=== PATIENT | female | born 1950 | race Caucasian/White ===

== ENCOUNTER → 2018-02-07 08:57 | Outpatient (CLI) | payer MEDICARE, SELFPAY ==
--- NOTE | 2018-02-07 09:00 | BI_ITS ---
MAMMOGRAPHY - BILATERAL SCREENING REASON FOR EXAM: Female, 67 years old. Routine annual screening examination. PERTINENT HISTORY: Non-contributory. TECHNIQUE: Digital bilateral breast castillo (3D mammographic acquisition) in the CC and MLO projections. 2-D mediolateral oblique (MLO) and craniocaudad (CC) views of both breasts were obtained. CAD: Full Field Digital Mammography with Computer Added Detection was performed. COMPARISON: Comparison is made with prior examination dated December 19, 2013. FINDINGS: Breast Composition: The breasts are heterogeneously dense, which may obscure small masses. There are no dominant masses or suspicious calcifications. Stable 9.1 mm well-defined calcified nodule in the upper slightly medial midportion of the left breast. No other significant abnormalities are identified. There has been no significant change since the prior study. BI/SCREENING MAMM (CAD), BILAT IMPRESSION: Stable bilateral screening mammogram. Yearly follow-up mammogram recommended. (A) ASSESSMENT CATEGORY: BIRADS Category 2: Benign. A letter regarding these results will be sent to the patient by the facility within 30 days. Approximately 10% of breast cancers are not detected by mammography. A normal mammogram should not delay biopsy of a clinically suspicious abnormality. [id number] Electronically Signed: Wilbur Cortez MD at 10:15 EST Tel [phone], Service support ,
== END ==
DX: Z12.31 Encounter for screening mammogram for malignant neoplasm of breast (principal)
CPT/HCPCS: 77063; 77067

== ENCOUNTER 2018-07-13 06:03 | Day surgery (SDC) | payer MEDICARE, SELFPAY ==
[2018-07-13] VITALS (14 sets, daily range): BP systolic 106–138; BP diastolic 68–86; PULSE 55–65; RESP 16–18; TEMP 36.6–36.8; O2SAT 92–98; BMI 34.9
--- NOTE | 2018-07-13 06:52 | PCM.HP.STD ---
Problem List (1) Screening for intestinal cancer Status: Acute History of Present Illness Date of Admission: 07/13/18 The patient is a 67 year old F presents for screening colonoscopy. She has not had a previous colonoscopy. Family history is notable for her father who developed colon cancer and from it. She notes dark stools but states that she is chronically iron deficient and has been on iron replacement for a long period of time. She denies bright red blood. She denies chest pain or shortness of breath. She has not had any weight change. [facility]. Past Medical History Allergies promethazine [From Phenergan] Adverse Reaction (Verified 07/13/18 06:26) ANXIETY, CONFUSION Home Medications: Ambulatory Orders Medication Instructions Recorded Atorvastatin Calcium [Lipitor] 10 mg PO QHS 07/11/18 Esomeprazole Mag Trihydrate 40 mg PO DAILY 07/11/18 [Nexium] Ferrous Sulfate [Iron] 325 mg PO DAILY 07/11/18 Fluoxetine [Prozac] 20 mg PO DAILY 07/11/18 Hydrochlorothiazide [Hctz] 12.5 mg PO DAILY 07/11/18 Losartan Potassium [Cozaar] 50 mg PO DAILY 07/11/18 Smoking Status: Never smoker Review of Systems Constitutional: Denies: Anorexia HEENT: Denies: Difficulty Swallowing Cardiovascular: Denies: Chest Pain Respiratory: Denies: Cough Gastrointestinal: Denies: Abdominal Pain Neurological: Denies: Balance problems Endocrine: Denies: Change in Body Habitus VTE Information - Inpt Only VTE Present on Admission: No Patient Problems: Active and Suspected Problems (This Medical Record has been edited. Action required.) Screening for intestinal cancer (Acute) - Physical Exam General: Alert, Oriented x3, Cooperative, No apparent distress HEENT: Atraumatic Oral: Moist Mucosa Neck: Supple Lungs: Clear to auscultation, Normal air movement Cardiovascular: Regular rate, Regular Rhythm Abdomen: Bowel Sounds Present, Soft, Non Tender Extremities: No Calf Tenderness Psych/Mental Status: Normal Affect Vital Signs Temp Pulse Resp BP Pulse Ox 98.2 F 65 18 125/78 H 97 07/13/18 06:26 07/13/18 06:26 07/13/18 06:26 07/13/18 06:26 07/13/18 06:26 Oxygen Delivery Method Room Air Weight: 203 lb 11.314 oz Body Mass Index (BMI) 34.9 Assessment/Plan All Active Problems (This Medical Record has been edited. Action required.) Screening for intestinal cancer (Acute) 67-year-old female with family history of colon cancer and no previous colonoscopy. I recommend for her colonoscopy with possible biopsy or polypectomy is indicated. She is aware of the technique, benefits, risks, alternatives. She has had an opportunity to ask and have questions answered. She presents via our open access program today. Ubaldo Guallpa M.D., F.A.C.S.
--- NOTE | 2018-07-13 06:55 | HP.PCM_ITS ---
Problem List (1) Screening for intestinal cancer Status: Acute History of Present Illness Date of Admission: 07/13/18 The patient is a 67 year old F presents for screening colonoscopy. She has not had a previous colonoscopy. Family history is notable for her father who developed colon cancer and from it. She notes dark stools but states that she is chronically iron deficient and has been on iron replacement for a long period of time. She denies bright red blood. She denies chest pain or shortness of breath. She has not had any weight change. [facility] is [facility]. Past Medical History Allergies promethazine [From Phenergan] Adverse Reaction (Verified 07/13/18 06:26) ANXIETY, CONFUSION Home Medications: Ambulatory Orders Medication Instructions Recorded Atorvastatin Calcium [Lipitor] 10 mg PO QHS 07/11/18 Esomeprazole Mag Trihydrate 40 mg PO DAILY 07/11/18 [Nexium] Ferrous Sulfate [Iron] 325 mg PO DAILY 07/11/18 Fluoxetine [Prozac] 20 mg PO DAILY 07/11/18 Hydrochlorothiazide [Hctz] 12.5 mg PO DAILY 07/11/18 Losartan Potassium [Cozaar] 50 mg PO DAILY 07/11/18 Smoking Status: Never smoker Review of Systems Constitutional: Denies: Anorexia HEENT: Denies: Difficulty Swallowing Cardiovascular: Denies: Chest Pain Respiratory: Denies: Cough Gastrointestinal: Denies: Abdominal Pain Neurological: Denies: Balance problems Endocrine: Denies: Change in Body Habitus VTE Information - Inpt Only VTE Present on Admission: No Patient Problems: Active and Suspected Problems (This Medical Record has been edited. Action required.) Screening for intestinal cancer (Acute) - Physical Exam General: Alert, Oriented x3, Cooperative, No apparent distress HEENT: Atraumatic Oral: Moist Mucosa Neck: Supple Lungs: Clear to auscultation, Normal air movement Cardiovascular: Regular rate, Regular Rhythm Abdomen: Bowel Sounds Present, Soft, Non Tender Extremities: No Calf Tenderness Psych/Mental Status: Normal Affect Vital Signs Temp Pulse Resp BP Pulse Ox 98.2 F 65 18 125/78 H 97 07/13/18 06:26 07/13/18 06:26 07/13/18 06:26 07/13/18 06:26 07/13/18 06:26 Oxygen Delivery Method Room Air Weight: 203 lb 11.314 oz Body Mass Index (BMI) 34.9 Assessment/Plan All Active Problems (This Medical Record has been edited. Action required.) Screening for intestinal cancer (Acute) 67-year-old female with family history of colon cancer and no previous colonos copy. I recommend for her colonoscopy with possible biopsy or polypectomy is indicated. She is aware of the technique, benefits, risks, alternatives. She has had an opportunity to ask and have questions answered. She presents via our open access program today. Ubaldo Guallpa M.D., F.A.C.S.
--- NOTE | 2018-07-13 07:00 | COLBX_PTH ---
PATIENT: KEHINDE MCNALLY LOC: [facility] U#:[id number] AGE/SX: 67/F ROOM: RE07/13/[address]: Dr. Ubaldo Guallpa MD : [id number] BED: DIS: 07/13/2018 SPEC #: [id number] RECD: 07/13/18 08:49 STATUS: YUMIKO ROSAURA #: [id number] GAIL: 07/13/18 07:[address]: Ubaldo Guallpa DEPT: SURGICAL PATHOLOGY RECD BY: Tim Williamson ENTERED: 07/13/18 09:40 SP TYPE: COLON BX GUALBERTO DR: Belkys Azul, DECKHAND [facility] DREDGE-[facility] Tissues: A - Cecum, NOS B - Sigmoid colon biopsy Procedures: Surgery Specimen Level IV HEADER OPERATION: Colonoscopy - open access (MOD) PRE-OP DIAGNOSIS: Screening colonoscopy TISSUE SUBMITTED: A - Cecal polyp biopsy, B - Proximal sigmoid melanosis biopsy MICROSCOPIC DIAGNOSIS A. Cecal polyp, biopsy: Fragments of colonic mucosa with pigment laden macrophages, consistent with melanosis coli. B. Proximal sigmoid melanosis, biopsy: Tubular adenoma. Pigment laden macrophages, consistent with melanosis coli. See comment. ROSEY:quintin 07/16/18 COMMENT A & B. The specimen appear to be switched. Clinical correlation and appropriate follow up are necessary. MICROSCOPIC DESCRIPTION Slides are reviewed. GROSS DESCRIPTION A - Received in fixative is one container labeled with the patient's name and designated cecal polyp biopsy. The specimen consists of two irregular fragments of light delacruz soft tissue that in aggregate measure 0.8 x 0.3 x 0.1 cm. The specimen is totally submitted in one cassette. B - Received in fixative is one container labeled with the patient's name and designated proximal sigmoid melanosis biopsy. The specimen consists of one irregular fragment of light delacruz soft tissue that measures 0.6 x 0.2 x 0.1 cm. The specimen is totally submitted in one cassette. / ROSEY:quintin 07/13/18 TC:1 CPT: 46156 x2
--- NOTE | 2018-07-13 07:25 | OP.ENDO_ITS ---
07/13/2018 [facility] Re : [facility] This procedure was performed on Friday, July 13, 2018. My impressions and recommendations are as follows: Impressions : - Hemorrhoids found on perianal exam. - One 4 mm polyp in the cecum, removed with a cold biopsy forceps. Resected and retrieved. - Melanosis in the colon. Biopsied. - Diverticulosis in the sigmoid colon and in the descending colon. Recommendations : - Discharge patient to home. - Resume previous diet. - Continue present medications. - Repeat colonoscopy in 5 years for surveillance. - Telephone my office for pathology results in 1 week. My findings are described in the full procedure note, which is enclosed. If I can be of further assistance, please feel free to contact me at Doctor phone number(s): Work: . Sincerely, Ubaldo Guallpa MD 07/13/2018 7:25:38 AM This report has been signed electronically.
== END 2018-07-13 08:55 | disposition home or self-care (01) ==
LOC: EN 06:04 → AC 06:06
PROVIDERS: Visit Provider Surgery
PROC: 0DJD8ZZ Inspection of Lower Intestinal Tract, Via Natural or Artificial Opening Endoscopic (ICD-10-PCS; CPT 45378; principal; 2018-07-13 06:55)
DX: Z12.11 Encounter for screening for malignant neoplasm of colon (principal); D12.0 Benign neoplasm of cecum; K63.89 Other specified diseases of intestine; K57.30 Diverticulosis of large intestine without perforation or abscess without bleeding; K64.9 Unspecified hemorrhoids; Z80.0 Family history of malignant neoplasm of digestive organs
CPT/HCPCS: 45380; 88305; 99152; 99153; J7120

== ENCOUNTER → 2018-10-04 10:39 | Outpatient (CLI) | payer MEDICARE, SELFPAY ==
[2018-07-13 06:26] VITALS: BMI 34.9
--- NOTE | 2018-10-04 10:43 | RAD_ITS ---
STUDY: X-RAY CHEST REASON FOR EXAM: Female, 67 years old. Chest pain TECHNIQUE: PA and lateral views of the chest COMPARISON: None. FINDINGS: The lungs are clear. There are no pleural effusions. There is no pneumothorax. The heart is normal in size. The visualized osseous structures are within normal limits. Cervical fusion present. RAD/Chest PA and Lateral IMPRESSION: No acute thoracic pathology. Electronically Signed: Sabas Wallace, at 16:19 EDT Tel , Service support ,
== END ==
DX: R05 Cough (principal)
CPT/HCPCS: 71046

== ENCOUNTER → 2019-02-08 07:40 | Outpatient (CLI) | payer MEDICARE, SELFPAY ==
[2018-07-13 06:26] VITALS: BMI 34.9
--- NOTE | 2019-02-08 07:50 | BI_ITS ---
MAMMOGRAPHY - BILATERAL SCREENING REASON FOR EXAM: Female, 68 years old. Routine annual screening examination. PERTINENT HISTORY: Non-contributory. TECHNIQUE: Digital bilateral breast mahsa (3D mammographic acquisition) in the CC and MLO projections. 2-D mediolateral oblique (MLO) and craniocaudad (CC) views of both breasts were obtained. CAD: Full Field Digital Mammography with Computer Added Detection was performed. COMPARISON: Comparison is made with prior study dated February 07, 2018 and December 19, 2013. FINDINGS: Breast Composition: The breasts are heterogeneously dense, which may obscure small masses. There are no dominant masses or suspicious calcifications. Stable 9.1 mm well-defined calcified nodule in the upper slightly medial aspect of the left breast No other significant abnormalities are identified. There has been no significant change since the prior study. BI/SCREEN MAMM (CAD) W/MAHSA BILAT IMPRESSION: Stable bilateral screening mammogram. Yearly follow-up mammogram recommended. (A) ASSESSMENT CATEGORY: BIRADS Category 2: Benign. A letter regarding these results will be sent to the patient by the facility within 30 days. Approximately 10% of breast cancers are not detected by mammography. A normal mammogram should not delay biopsy of a clinically suspicious abnormality. [id number] Electronically Signed: Wilbur Cortez, at 9:07 EST , Service support ,
== END ==
DX: Z12.31 Encounter for screening mammogram for malignant neoplasm of breast (principal)
CPT/HCPCS: 77063; 77067

== ENCOUNTER → 2019-12-27 09:06 | Outpatient (CLI) | payer MEDICARE, SELFPAY ==
[2018-07-13 06:26] VITALS: BMI 34.9
[2019-12-27 09:24] LABS: Absolute Lymphocyte Count 2.46 X10^3/uL (0.83-4.51); Absolute Neutrophil Count 4.5 X10^3/uL (2.0-7.7); Basophil# 0.06 X10^3/uL; Basophil% 0.8 % (0-1); Eosinophils% 2.6 % (0-5); Hemoglobin 13.7 g/dL (12.0-15.0); Lymphocyte # 2.46 X10^3/ul (4.0); Lymphocyte % 31.9 % (19-41); Mean Corp Hgb Conc 32.6 g/dL (32-36); Mean Corpuscular Hgb 31.6 pg (27.0-32.0); Mean Corpuscular Volume 96.8 fL (81-99); Mean Platelet Vol. 9.7 fl (6.2-12.0); Monocyte# 0.48 X10^3/uL; Monocyte% 6.2 % (0-10); NRBC Flagged by Analyzer 0 % (0-5); Neutrophil # 4.51 X10^3/uL (2.7-7.7); Neutrophil % 58.4 % (47-70); Platelet Count 260 K/mm3 (150-450); RBC Distribution Width CV 12.9 % (11.6-14.6); RBC Distribution Width SD 46.5 fl (35.1-43.9); Red Blood Count 4.34 M/mm3 (4.2-5.4); White Blood Count 7.7 K/mm3 (4.4-11.0)
[2019-12-27 09:46] LABS: AST(SGOT) 31 U/L (15-37); Alanine Aminotransfer ALT/SGPT 33 U/L (13-56); Alkaline Phosphatase 79 U/L (45-117); Anion Gap 7 (5-15); BUN 20 mg/dL (7-18); BUN/Creat Ratio 22.2 RATIO (10-20); Calcium,Total 9.2 mg/dL (8.5-10.1); Chloride 104 mmol/L (98-107); Cholesterol 199 mg/dL (200); EST Glomerular Filtration Rate 66 mL/min (>60); Est Glom Filt Rate - Afr Amer 79 mL/min (>60); Glucose 93 mg/dL (74-106); High Density Lipoprotein 43 mg/dL; Sodium Level 139 mmol/L (136-145); Triglycerides 181 mg/dL; Very Low Density Lipoprotein 36 mg/dL (5-40)
[2019-12-27 09:47] LABS: Vitamin D,25 Hydroxy 22.8 ng/mL
[2019-12-27 09:50] LABS: Hemoglobin A1c 5.6 % (3.8-5.6)
== END ==
PROVIDERS: Nurse Practitioner Family
DX: D64.9 Anemia, unspecified (principal); R73.03 Prediabetes; E78.5 Hyperlipidemia, unspecified; E55.9 Vitamin D deficiency, unspecified; I10 Essential (primary) hypertension
CPT/HCPCS: 36415; 80053; 80061; 82306; 83036; 85025

== ENCOUNTER → 2020-12-09 13:03 | Outpatient (CLI) | payer MEDICARE, SELFPAY ==
--- NOTE | 2020-12-09 13:08 | BI_ITS ---
MAMMOGRAPHY - BILATERAL SCREENING 3-D TOMOSYNTHESIS REASON FOR EXAM: Female, 69 years old. SCREENING PERTINENT HISTORY: No significant family history. TECHNIQUE: 2-D mammograms and 3-D Tomosynthesis of the breast (s) were performed. CAD was performed. COMPARISON: 02/08/2019 FINDINGS: The breast composition is heterogeneously dense that can obscure small breast masses. Scattered benign calcifications are seen. No dense spiculated masses or suspicious microcalcifications are identified. No architectural distortion is identified. There is no skin thickening or retraction. There has been no significant change since the prior study. BI/SCRN MAMM (CAD)W/MAHSA BILAT IMPRESSION: No mammographic signs of malignancy. Routine yearly mammograms recommended. ASSESSMENT CATEGORY: BIRADS Category 1: Negative. A letter regarding these results will be sent to the patient by the facility within 30 days. FOLLOW UP RECOMMENDATION: Yearly follow up mammogram recommended. (A) Approximately 10% of breast cancers are not detected by mammography. A normal mammogram should not delay biopsy of a clinically suspicious abnormality. Electronically Signed: Jefe Hampton MD at 13:57 EDT Tel , Service support ,
== END ==
PROVIDERS: Referring Provider Nurse Practitioner Adult Health; Visit Provider Nurse Practitioner Adult Health
DX: Z12.31 Encounter for screening mammogram for malignant neoplasm of breast (principal)
CPT/HCPCS: 77063; 77067

== ENCOUNTER → 2020-12-16 08:24 | Outpatient (CLI) | payer MEDICARE, SELFPAY ==
[2020-12-16 09:42] LABS: T4 Free Direct 0.73 ng/dL (0.76-1.46); Thyroid Stim Hormone (TSH) 2.67 uIU/mL (0.358-3.74)
== END ==
DX: I10 Essential (primary) hypertension (principal); D64.9 Anemia, unspecified; E78.5 Hyperlipidemia, unspecified; F33.0 Major depressive disorder, recurrent, mild
CPT/HCPCS: 36415; 84439; 84443

== ENCOUNTER → 2020-12-29 09:02 | Outpatient (CLI) | payer MEDICARE, SELFPAY ==
--- NOTE | 2020-12-29 09:06 | BD_ITS ---
STUDY: DUAL ENERGY X-RAY ABSORPTIOMETRY / DXA REASON FOR EXAM: Female, 70 years old. M810. Patient is postmenopausal. TECHNIQUE: Bone Mineral Density (BMD) measurements of lumbar spine and bilateral hips were obtained. COMPARISON: Comparison is made with prior study 12/19/2013. FINDINGS: Lumbar Spine (L1-L4): g/cm2 (0.990) / T-score (0.1) / Z-score (2.2) Findings are suggestive of normal bone density with a low fracture risk. Left Femur Total: g/cm2 (0.932) / T-score (-0.1) / Z-score (1.5) Left Femoral Neck: g/cm2 (0.827) / T-score (0.2) / Z-score (1.7) Right Femur Total: g/cm2 (0.914) / T-score (0.2) / Z-score (1.4) Right Femoral Neck: g/cm2 (0.760) / T-score (-0.8) / Z-score (1.) The T-Scores on the most recent prior examination were: Lumbar Spine (L1-L4): There has been worsening of bone density since the previous examination. Left Femur Total: which represents a worsening of 6%. Right Femur Total: which represents a worsening of 5.1%. BD/Dexa Bone Density Study IMPRESSION: The patient is considered normal as outlined below according to World [employer] Organization (WHO) criteria with a low fracture risk. There has been worsening of bone density since the previous examination. Reference Information: The T-score is the number of standard deviations above or below the standard which is normal for young adults at their peak bone mineral density. The World Health Organization (WHO) interprets the T-scores as follows: Above -1 Normal bone density Between -1 and -2.5 Osteopenia Equal to / or below -2.5 Osteoporosis As a practical clinical guideline, osteopenia may be graded as follows: Mild -1 through -1.5 Moderate -1.6 through -2.0 Severe -2.1 through -2.4 The Z-score is the number of standard deviations above or below age-matched controls. A Z-score of less than -1.5 would be considered abnormal. References: 1. NIH Osteoporosis and Related Bone Diseases www osteo.org 2. International Society for Clinical Densitometry www iscd.org 3. National Osteoporosis Foundation www nof.org Electronically Signed: Wilbur Cortez MD at 13:13 EDT , Service support ,
== END ==
PROVIDERS: Referring Provider Nurse Practitioner Adult Health; Visit Provider Nurse Practitioner Adult Health
DX: M81.0 Age-related osteoporosis without current pathological fracture (principal); Z78.0 Asymptomatic menopausal state
CPT/HCPCS: 77080

== ENCOUNTER → 2021-09-23 | Outpatient (CLI) | payer MEDICARE, SELFPAY ==
[2021-09-23 10:34] LABS: Hematocrit 39.4 % (37-47); Hemoglobin 13.1 g/dL (12.0-15.0); Mean Corp Hgb Conc 33.2 g/dL (32-36); Mean Corpuscular Hgb 32.3 pg (27.0-32.0); Mean Corpuscular Volume 97.3 fL (81-99); Mean Platelet Vol. 10.3 fl (6.2-12.0); Platelet Count 298 K/mm3 (150-450); RBC Distribution Width SD 46.7 fl (35.1-43.9); Red Blood Count 4.05 M/mm3 (4.2-5.4); White Blood Count 9.5 K/mm3 (4.4-11.0)
[2021-09-23 11:32] LABS: ALB/GLOB Ratio 0.8 RATIO (0.9-2.4); AST(SGOT) 28 U/L (15-37); Alanine Aminotransfer ALT/SGPT 33 U/L (13-56); Albumin, Serum 3.4 g/dL (3.2-5.0); Alkaline Phosphatase 79 U/L (45-117); Anion Gap 8 (5-15); BUN 18 mg/dL (7-18); BUN/Creat Ratio 19.1 RATIO (10-20); Calcium,Total 9.2 mg/dL (8.5-10.1); Chloride 104 mmol/L (98-107); Cholesterol 185 mg/dL (200); Creatinine, Serum 0.94 mg/dL (0.55-1.02); EST Glomerular Filtration Rate 62 mL/min (>60); Est Glom Filt Rate - Afr Amer 75 mL/min (>60); Globulin 4.2 g/dL (2.2-4.2); Glucose 91 mg/dL (74-106); High Density Lipoprotein 30 mg/dL; Potassium 3.8 mmol/L (3.5-5.1); Protein, Total 7.6 g/dL (6.4-8.2); Sodium Level 139 mmol/L (136-145); Triglycerides 330 mg/dL; Very Low Density Lipoprotein 66 mg/dL (5-40)
== END | disposition home or self-care (01) ==
PROVIDERS: Visit Provider Nurse Practitioner Adult Health
DX: I10 Essential (primary) hypertension (principal)
CPT/HCPCS: 36415; 80053; 80061; 84443; 85027

== ENCOUNTER → 2021-12-27 | Outpatient (CLI) | payer MEDICARE, SELFPAY ==
--- NOTE | 2021-12-27 12:54 | BI_ITS ---
MAMMOGRAPHY - BILATERAL SCREENING REASON FOR EXAM: Female, 71 years old. Routine annual screening examination. PERTINENT HISTORY: Non-contributory. TECHNIQUE: Digital bilateral breast mahsa (3D mammographic acquisition) in the CC and MLO projections. 2-D mediolateral oblique (MLO) and craniocaudad (CC) views of both breasts were obtained. CAD: Full Field Digital Mammography with Computer Added Detection was performed. COMPARISON: Comparison is made with prior study dated 12/09/2020 and 02/08/2019. FINDINGS: Breast Composition: The breasts are heterogeneously dense, which may obscure small masses. There are no dominant masses or suspicious calcifications. Stable 9 mm well-defined nodule in the upper slightly medial aspect of the left breast. Stable 4 mm well-defined nodule in the axillary region of the left breast. No other significant abnormalities are identified. There has been no significant change since the prior study. BI/SCRN MAMM (CAD)W/MAHSA BILAT IMPRESSION: Stable bilateral screening mammogram. Yearly follow-up mammogram recommended. (A) ASSESSMENT CATEGORY: BIRADS Category 2: Benign. A letter regarding these results will be sent to the patient by the facility within 30 days. Approximately 10% of breast cancers are not detected by mammography. A normal mammogram should not delay biopsy of a clinically suspicious abnormality. [id number] Electronically Signed: Wilbur Cortez MD at 14:01 EDT ,
== END | disposition home or self-care (01) ==
LOC: OPBI 12:53
PROVIDERS: Referring Provider Family Medicine; Visit Provider Family Medicine
DX: Z12.31 Encounter for screening mammogram for malignant neoplasm of breast (principal)
CPT/HCPCS: 77063; 77067

== ENCOUNTER → 2022-08-17 | Outpatient (CLI) | payer MEDICARE, SELFPAY ==
[2022-08-17 09:35] LABS: Hematocrit 42.8 % (37-47); Mean Corp Hgb Conc 32.7 g/dL (32-36); Mean Corpuscular Hgb 32.2 pg (27.0-32.0); Mean Corpuscular Volume 98.4 fL (81-99); Mean Platelet Vol. 9.8 fl (6.2-12.0); Platelet Count 301 K/mm3 (150-450); RBC Distribution Width CV 12.9 % (11.6-14.6); RBC Distribution Width SD 46.6 fl (35.1-43.9); Red Blood Count 4.35 M/mm3 (4.2-5.4); White Blood Count 8.3 K/mm3 (4.4-11.0)
[2022-08-17 09:55] LABS: Hemoglobin A1c 5.8 % (3.8-5.6)
[2022-08-17 10:27] LABS: AST(SGOT) 26 U/L (15-37); Alanine Aminotransfer ALT/SGPT 29 U/L (13-56); Alkaline Phosphatase 86 U/L (45-117); Anion Gap 8 (5-15); BUN 20 mg/dL (7-18); BUN/Creat Ratio 24.4 RATIO (10-20); Calcium,Total 9.4 mg/dL (8.5-10.1); Chloride 103 mmol/L (98-107); Cholesterol 218 mg/dL (200); Creatinine, Serum 0.82 mg/dL (0.55-1.02); EST Glomerular Filtration Rate 73 mL/min (>60); Est Glom Filt Rate - Afr Amer 88 mL/min (>60); Globulin 4.2 g/dL (2.2-4.2); Glucose 99 mg/dL (74-106); High Density Lipoprotein 40 mg/dL; Potassium 3.7 mmol/L (3.5-5.1); Protein, Total 8.2 g/dL (6.4-8.2); Sodium Level 137 mmol/L (136-145); Thyroid Stim Hormone (TSH) 3.61 uIU/mL (0.358-3.74); Triglycerides 205 mg/dL; Very Low Density Lipoprotein 41 mg/dL (5-40)
== END | disposition home or self-care (01) ==
DX: I10 Essential (primary) hypertension (principal); E78.5 Hyperlipidemia, unspecified; R73.03 Prediabetes; D64.9 Anemia, unspecified; E55.9 Vitamin D deficiency, unspecified
CPT/HCPCS: 36415; 80053; 80061; 82306; 83036; 84443; 85027

== ENCOUNTER → 2023-05-03 | Outpatient (CLI) | payer MEDICARE, SELFPAY ==
[2023-05-03 09:52] LABS: Absolute Lymphocyte Count 1.99 X10^3/uL (0.83-4.51); Absolute Neutrophil Count 4.4 X10^3/uL (2.0-7.7); Basophil# 0.06 X10^3/uL; Basophil% 0.8 % (0-1); Eosinophil# 0.18 X10^3/uL; Eosinophils% 2.5 % (0-5); Hematocrit 39.9 % (37-47); Hemoglobin 13.2 g/dL (12.0-15.0); Lymphocyte # 1.99 X10^3/ul (0.83-4.51); Lymphocyte % 28.1 % (19-41); Mean Corp Hgb Conc 33.1 g/dL (32-36); Mean Corpuscular Volume 93.7 fL (81-99); Mean Platelet Vol. 9.9 fl (6.2-12.0); Monocyte# 0.46 X10^3/uL; Monocyte% 6.5 % (0-10); NRBC Flagged by Analyzer 0 % (0-5); Neutrophil # 4.37 X10^3/uL (2.7-7.7); Neutrophil % 61.8 % (47-70); Platelet Count 265 K/mm3 (150-450); RBC Distribution Width SD 44.4 fl (35.1-43.9); Red Blood Count 4.26 M/mm3 (4.2-5.4); White Blood Count 7.1 K/mm3 (4.4-11.0)
[2023-05-03 10:39] LABS: Hemoglobin A1c 5.9 % (3.8-5.6)
[2023-05-03 11:20] LABS: AST(SGOT) 22 U/L (15-37); Alanine Aminotransfer ALT/SGPT 24 U/L (13-56); Albumin, Serum 3.8 g/dL (3.2-5.0); Alkaline Phosphatase 77 U/L (45-117); Anion Gap 5 (5-15); BUN 20 mg/dL (7-18); BUN/Creat Ratio 24.5 RATIO (10-20); Calcium,Total 9.1 mg/dL (8.5-10.1); Chloride 107 mmol/L (98-107); Cholesterol 165 mg/dL (200); Creatinine, Serum 0.82 mg/dL (0.55-1.02); EST Glomerular Filtration Rate 73 mL/min (>60); Est Glom Filt Rate - Afr Amer 88 mL/min (>60); Globulin 3.9 g/dL (2.2-4.2); Glucose 99 mg/dL (74-106); High Density Lipoprotein 39 mg/dL; Iron 80 ug/dL (50-170); Iron Binding Capacity,Total 274 ug/dL (250-450); Potassium 3.7 mmol/L (3.5-5.1); Protein, Total 7.7 g/dL (6.4-8.2); Sodium Level 138 mmol/L (136-145); Thyroid Stim Hormone (TSH) 2.84 uIU/mL (0.358-3.74); Triglycerides 211 mg/dL; Very Low Density Lipoprotein 42 mg/dL (5-40)
--- OUTSIDE RECORDS SUMMARY | 2023-05-03 11:23 | XMS RPT_ITS | CCD ---
Author Name Unknown Address [address] [facility] [place] [address] [place] [id number] Organization [facility] Care Team Providers Care Financial Associate Name Role Phone Unavailable Primary Care [facility], Velma Rodriguez Primary Care Provider Un available PHYSICIAN, PATIENT UNSURE Primary Care MAX Arizmendi Attending Unavailab le PHYSICIAN, PATIENT UNSURE Primary Care Physician Unavailable Allergies Allergy Classification Reported Allergen(s) Allergy Type Date of Onset Reaction(s) Facility (6 sources) Aspirin; Translations: [ASPIRIN] Drug Allergy 05-16-2011 GI Upset [facility] (7 sources) Promethazine; Translations: [PROMETHAZINE] Drug Allergy 07-13-2018 Intolerance, Other: See Comments [facility] Medications Current Medications Medication Drug Class(es) Dates Sig (Normalized) Sig (Original) doxycycline monohydrate 100 mg oral tablet (1 source) Tetracycline-clas s Drug Start: 10-25-2021 End: 11-04-2021 take 1 tablet by mouth twice daily doxycycline monohydrate 100 mg tablet Indications: Boil of trunk Take 1 tablet by mouth twice daily for 10 days. 20 tablet 0 10/25/2021 11/04/2021 Active Completed/Discontinued Medications Medication Drug Class(es) Dates Sig (Normalized) Sig (Original) Calcium Carbonate / vitamin D3 (5 sources) CALCIUM CARBONATE/VITAMIN D3 (CALCIUM 500 + D ORAL) Take by mouth once daily. 0 Active Problems Active Problems Problem Classification Problem Date Documented Da te Episodic/Chronic Other connective tissue disease (1 source) Other symptoms and signs involving the musculoskeletal system; Translations: [Other symptoms and signs involving the musculoskeletal system] Episodic Other inflammatory condition of skin (1 source) Acute erythematous eruption of skin; Translations: [Erythematous condition, unspecified] Episodic Skin and subcutaneous tissue infections (1 source) Furuncle of trunk; Translations: [Furuncle of trunk, unspecified] Episodic Spondylosis; intervertebral disc disorders; other back problems (2 sources) Low back pain; Translations: [Low back pain, unspecified] Episodic Past or Other Problems Problem Classification Problem Date Documented Da te Episodic/Chronic Abdominal hernia (5 sources) Incisional hernia; Translations: [Incisional hernia without obstruction or gangrene] Onset: 05-16-2011 05-16-2011 Episodic Results Test Name Value Interpretation Reference Range Facil ity Vital Signs Date Time Vital Sign Value Performing Clinician Lion arroyo 08-19-2022 09:24-0400 Body temperature 97.3 [degF] Fernando Vizcaino MD Work Phone: [facility] 08-19-2022 09:24-0400 Body weight 93.89 kg Fernando Vizcaino MD Work Phone: [facility] 08-19-2022 09:24-0400 Diastolic blood pressure 72 mm[Hg] Feranndo Vizcaino MD Work Phone: [facility] 08-19-2022 09:24-0400 Heart rate 85 /min Fernando Vizcaino MD Work Phone: [facility] 08-19-2022 09:24-0400 Respiratory rate 18 /min Fernando Vizcaino MD Work Phone: [facility] 08-19-2022 09:24-0400 SaO2% (BldA) [Mass fraction] 97 % Fernando Vizcaino MD Work Phone: [facility] 08-19-2022 09:24-0400 Systolic blood pressure 124 mm[Hg] Fernando Vizcaino MD Work Phone: [facility] 10-25-2021 18:11-0400 Body temperature 97.59 [degF] Shama Del Valle APRN.CNP Work Phone: [facility] 10-25-2021 18:11-0400 Body weight 94.53 kg Shama Del Valle APRN.CNP Work Phone: [facility] 10-25-2021 18:11-0400 Diastolic blood pressure 86 mm[Hg] Shama Del Valle CLINICAL ABSTRACTOR.EDUCATIONAL SPECIALIST Work Phone: [facility] 10-25-2021 18:11-0400 Heart rate 76 /min Shama Del Valle CLINICAL ABSTRACTOR.EDUCATIONAL SPECIALIST Work Phone: [facility] 10-25-2021 18:11-0400 Respiratory rate 20 /min Shama Del Valle CLINICAL ABSTRACTOR.EDUCATIONAL SPECIALIST Work Phone: [facility] 10-25-2021 18:11-0400 SaO2% (BldA) [Mass fraction] 97 % Shama Del Valle CLINICAL ABSTRACTOR.EDUCATIONAL SPECIALIST Work Phone: [facility] 10-25-2021 18:11-0400 Systolic blood pressure 118 mm[Hg] Shama Del Valle CLINICAL ABSTRACTOR.EDUCATIONAL SPECIALIST Work Phone: [facility] Encounters Encounter Date Encounter Type Care Provider Facility Start: 03-02-2023 ambulatory PATIENT UNSURE PHYSICIAN Facility:B Start: 03-02-2023 End: 04-05-2023 Physical therapy management MAX VU [facility] Start: 02-07-2023 Refill [facility] Procedures Date Procedure Procedure Detail Performing Clinician Start: 10-04-2011 Lipid 1996 panel - S alessio or Plasma [facility] Start: 05-15-2010 Mammography Shama Ryder APRN.EDUCATIONAL SPECIALIST Work Phone: Plan of Treatment Date Care Activity Detail Author Start: 11-04-2022 Influenza vaccination [facility] Start: 03-06-2022 ADVANCE DIRECTIVE DISCUSSION ADVANCE DIRECTIVE DISCUSSION [facility] Start: 03-06-2022 DEPRESSION ASSESSMENT DEPRESSION ASSESSMENT [facility] Start: 11-04-2021 Influenza vaccination INFLUENZA (#1) [facility] Start: 03-06-2021 ADVANCE DIRECTIVE DISCUSSION ADVANCE DIRECTIVE DISCUSSION [facility] Start: 07-17-2019 DIABETES SCREEN DIABETES SCREEN [facility] Start: 07-17-2019 Diabetes Screening Diabetes Screening [facility] Start: 10-03-2016 Lipid 1996 panel - Serum or Plasma Lipid Screening [facility] Start: 10-03-2016 Lipid panel Lipid Screening [facility] Start: 10-03-2016 LIPID SCREEN LIPID SCREEN [facility] Start: 2013 BONE DENSITY BONE DENSITY [facility] Start: 2013 Bone Density Screening Bone Density Screening [facility] Start: 2013 Pneumococcal Vaccine: 65+ (1 - PCV) Pneumococcal Vaccine: 65+ (1 - PCV) [facility] Start: 2013 Pneumococcal Vaccine: 65+ (1 of 1 - PCV) Pneumococcal Vaccine: 65+ (1 of 1 - PCV) [facility] Start: 2013 PNEUMOCOCCAL: 65+ (1 - PCV) PNEUMOCOCCAL: 65+ (1 - PCV) [facility] Start: 2013 Screening for osteoporosis Bone Density Screening [facility] Start: 05-16-2011 Mammography [facility] Start: 05-16-2011 Screening for malignant neoplasm of breast Mammogram Screening [facility] Start: 2008 RSV Vaccine (1 - 1-dose 60+ series) RSV Vaccine (1 - 1-dose 60+ series) [facility] Start: 1998 SHINGRIX VACCINE (1 of 2) SHINGRIX VACCINE (1 of 2) [facility] Start: 1993 COLOGUARD (FIT-DNA) COLOGUARD (FIT-DNA) [facility] Start: 1993 Colonoscopy COLONOSCOPY [facility] Start: 1993 COLORECTAL CANCER SCREENING COLORECTAL CANCER SCREENING [facility] Start: [address] COLONOGRAPHY [facility] Start: 1993 FECAL OCCULT BLOOD FECAL OCCULT BLOOD [facility] Start: 1993 Screening for malignant neoplasm of colon [facility] Start: 1993 SIGMOIDOSCOPY SIGMOIDOSCOPY [facility] Start: 12-17-1967 Urine microalbumin profile [facility] Start: 1966 HEPATITIS C SCREENING HEPATITIS C SCREENING [facility] Start: 1966 Hepatitis C screening Hepatitis C Screening [facility] Start: 1960 Adult depression screening assessment DEPRESSION SCREENING [facility] Start: 06-16-1949 COVID-19 VACCINE (#1) COVID-19 VACCINE (#1) [facility] Bacteria identified in Wound by Culture WOUND CULTURE AND GRAM STAIN Microbiology Routine Boil of trunk Ordered: 10/25/2021 [facility] Work Phone: Payers Date Payer Category Payer Medicare [employer] MEDICARE A ETNA MEDICARE HMO [id number] 2022-Present [phone] [address] [place] [address] HMO [id number] 2022 Medicare [id number] 2021 Unknown ANTHEM BLUE CROS S AND BLUE SHIELD ANTHEM MEDIBLUE HMO [id number] 2021-Present [phone] [address] [place] [address] HMO [id number] 1950 Unknown [id number] Social History Date Type Detail Facility Start: 10-25-2021 Tobacco smoking stat [facility] Never smoked tobacco [facility] Start: 10-25-2021 Tobacco use and exposure Smokeless tobacco non-user [facility] Start: 10-25-2021 End: 08-19-2022 Alcohol intake Current non-drinker of alcohol (finding) [facility] Start: 1950 Sex Assigned At Not on file [facility] Start: 10-15-2021 End: 10-25-2021 Exposure to SARS-CoV-2 (event) Not sure [facility] Work Phone: Start: 08-19-2022 History of Social function [facility] Start: 08-19-2022 Tobacco use panel [facility] Sex Assigned At Sex [facility] Functional Status Date Assessment Result Facility 03-02-2023 Functional Status Home Living Ad ditional Information OBJECTIVE Vitals: BP 111/64 automatic Posture: forward head posture Gait: amb with no AD, slow pace, antalgic Transfers: apprehensive due to pain, use of UEs Sensation: no abnormalities with light touch grossly UEs and LEs Edema: none AROM: cervical mod restriction rotation bilat, mod restriction extension and flexion; UEs bilateral flexion and abduction 120, otherwise WFL Leg length: R shortened Pelvis: R upslip Leg pull x2 with improved symptoms reported Special Tests Scour: neg JUSTEN: mary MCDOWELLIR: mary [facility] Clinical Notes 10-25-2021 to 02-03-2023 Addendum Note - Boo White[employer] 3DOri Kraft - 02/03/2023 11:21 AM ESTTelephone Encounter - Boo White[employer] 3DOri Kraft - 02/03/2023 11:20 AM ESTPatient Instructions Note Date & Type Note Facility 02-03-2023 Miscellaneous Notes Addended by: BOO WhitePrescription Corporation of AmericaORI Kraft on: 02/03/2023 11:21 AM Modules accepted: Orders Patient reviewed for Population Health Medication Adherence Pended the following prescription(s) for review. Requested Prescriptions Pending Prescriptions Disp Refills losartan (COZAAR) 50 mg tablet Sig: Take 1 tablet by mouth once daily. No future appointments. Please review and refill if appropriate. Thank you. Ori WhiteAustral 3D) February 03, 2023 11:20 AM documented in this encounter [facility] 11-12-2022 Note Patient Outreach ( PO) KEHINDE PITT ([id number]) 1950 F Date Time Provider Department 11/12/22 [facility] During your visit today, we recorded the following information about you: Carlos SubramanianTChantel 11/12/2022 8:35 AM Signed Kehinde Pitt is identified through a medication adherence outreach initiative based on pharmacy claims data from [employer] (insurer) for Statin medication(s). Patient is reviewed 11/12/22 due to medication adherence concerns with the following medications (name, strength, sig): Atorvastatin 20 mg 1 tablet every day . Per data/report, last fill date and days supply: Due 10/31/2022 Per reconcile dispense, last fill date and days supply: 11/08/2022 for 90 days Per call to pharmacy, last picked up date and days supply: NA Outcome of review/outreach: (choose outcome source and status) - Filled within 7 days of Next fill date per reconcile dispense Chantel Gonzalez Pharm-T Allergies As of Date: 11/12/2022 Noted Allergy Reaction ASPIRIN 05/16/2011 8 - GI Upset PROMETHAZINE 07/13/2018 5 - Intolerance 14 - Other: See Comments Date Reviewed: 08/19/2022 Reviewed by: Jazmin Arce LPN - Fully Assessed Reason for Visit: Allied Health Visit [5] Cmt: Medication Adherence Outreach Prescriptions as of 11/12/2022 - hydroCHLOROthiazide (HYDRODIURIL, ESIDRIX) 12.5 mg tablet Take 12.5 mg by mouth once daily. - losartan (COZAAR) 50 mg tablet Take 50 mg by mouth once daily. - montelukast (SINGULAIR) 10 mg tablet Take 10 mg by mouth once daily. - loratadine (CLARITIN) 10 mg tablet Take 10 mg by mouth once daily. - SIMVASTATIN (ZOCOR ORAL) Take by mouth. - NAPROXEN SODIUM (ALEVE ORAL) Take by mouth. - OMEPRAZOLE (PRILOSEC ORAL) Take by mouth. - FLUoxetine (PROZAC) 20 mg capsule Take 1 capsule by mouth twice daily. - [place]-3 Fatty Acids-Vitamin E 1,000 mg cap Take 1 capsule by mouth. - celecoxib (CELEBREX) 200 mg capsule Take 200 mg by mouth twice daily. - FERROUS SULFATE (IRON ORAL) Take by mouth once daily. - rosuvastatin (CRESTOR) 20 mg tablet Take 20 mg by mouth once daily. - Multivitamin ORAL capsule Take 1 capsule by mouth once daily. - CALCIUM CARBONATE/VITAMIN D3 (CALCIUM 500 + D ORAL) Take by mouth once daily. Meds Comments as of 10/25/2021: Problem List As Of Date 11/12/2022 Noted Resolved Incisional hernia [K43.2] 05/16/2011 Encounter Status:Closed by CHANTEL WIN on 11/12/22 [facility] 11-12-2022 Note HNO ID: [id number] Author: Chantel Win Service: ? Author Type: ? Type: Progress Notes Filed: 11/12/2022 8:35 AM Note Text: Kehinde Pitt is identified through a medication adherence outreach initiative based on pharmacy claims data from [employer] (insurer) for Statin medication(s). Patient is reviewed 11/12/22 due to medication adherence concerns with the following medications (name, strength, sig): Atorvastatin 20 mg 1 tablet every day . Per data/report, last fill date and days supply: Due 10/31/2022 Per reconcile dispense, last fill date and days supply: 11/08/2022 for 90 days Per call to pharmacy, last picked up date and days supply: NA Outcome of review/outreach: (choose outcome source and status) - Filled within 7 days of Next fill date per reconcile dispense Chantel Gonzalez Pharm-T [facility] 11-12-2022 History of Present illness Narrative Kehinde Pitt is identified through a medication adherence outreach initiative based on pharmacy claims data from [employer] (insurer) for Statin medication(s). Patient is reviewed 11/12/22 due to medication adherence concerns with the following medications (name, strength, sig): Atorvastatin 20 mg 1 tablet every day . Per data/report, last fill date and days supply: Due 10/31/2022 Per reconcile dispense, last fill date and days supply: 11/08/2022 for 90 days Per call to pharmacy, last picked up date and days supply: NA Outcome of review/outreach: (choose outcome source and status) - Filled within 7 days of Next fill date per reconcile dispense Chantel Bernard documented in this encounter [facility] 08-19-2022 Note HNO ID: [id number] Author: Fernando Vizcaino MD Service: ? Author Type: Physician Type: Progress Notes Filed: 08/19/2022 9:59 AM Note Text: Patient presents with: Trauma: Pt reported (RT) arm pain, small red raised area, x1 day. HPI: Skin Lesion: Location: right forearm Duration: noticed today, suspects she may have a thistle in the arm from weeding the garden yesterday Pruritis/Pain: itches and hurts Change: no Drainage/blister/pustule/ulceratio n: red area with dark center Treatment: none. VS clinic suggested she come here to have it checked when she was there this morning. MEDICATIONS: hydroCHLOROthiazide (HYDRODIURIL, ESIDRIX) 12.5 mg tablet Take 12.5 mg by mouth once daily. losartan (COZAAR) 50 mg tablet Take 50 mg by mouth once daily. montelukast (SINGULAIR) 10 mg tablet Take 10 mg by mouth once daily. loratadine (CLARITIN) 10 mg tablet Take 10 mg by mouth once daily. SIMVASTATIN (ZOCOR ORAL) Take by mouth. NAPROXEN SODIUM (ALEVE ORAL) Take by mouth. OMEPRAZOLE (PRILOSEC ORAL) Take by mouth. FLUoxetine (PROZAC) 20 mg capsule Take 1 capsule by mouth twice daily. [place]-3 Fatty Acids-Vitamin E 1,000 mg cap Take 1 capsule by mouth. FERROUS SULFATE (IRON ORAL) Take by mouth once daily. Multivitamin ORAL capsule Take 1 capsule by mouth once daily. CALCIUM CARBONATE/VITAMIN D3 (CALCIUM 500 + D ORAL) Take by mouth once daily. celecoxib (CELEBREX) 200 mg capsule Take 200 mg by mouth twice daily. (Patient not taking: Reported on 08/19/2022) rosuvastatin (CRESTOR) 20 mg tablet Take 20 mg by mouth once daily. (Patient not taking: Reported on 08/19/2022) ALLERGIES: ALLERGIES Allergen Reactions Aspirin GI Upset Promethazine Intolerance, Other: See Comments VITALS: BP 124/72 Pulse 85 Temp 36.3 ?C (97.3 ?F) (Tympanic) Resp 18 Wt 93.9 kg (207 lb) SpO2 97% PE: Pleasant, in no acute distress. <1cm erythematous and slightly indurated annular lesion with 1mm central stellate dark rogers on the mid right medial forearm. Under magnification there is stellate eschar or stain in the center following the minute fissures between pores and central puncture. No palpable fluctuance or foreign body. No subjective sensation of foreign body either. ASSESSMENT/PLAN: 1. Acute erythematous eruption of skin - ICD9: 695.89, ICD10: L53.9 Insect bite vs plant puncture. No exam findings of foreign body. Conservative treatment with antibiotic ointment and monitoring. Fernando Vizcaino MD [facility] 08-19-2022 History of Present illness Narrative Patient presents with: Trauma: Pt reported (RT) arm pain, small red raised area, x1 day. HPI: Skin Lesion: Location: right forearm Duration: noticed today, suspects she may have a thistle in the arm from weeding the garden yesterday Pruritis/Pain: itches and hurts Change: no Drainage/blister/pustule/ulceratio n: red area with dark center Treatment: none. VS clinic suggested she come here to have it checked when she was there this morning. MEDICATIONS: hydroCHLOROthiazide (HYDRODIURIL, ESIDRIX) 12.5 mg tablet Take 12.5 mg by mouth once daily. losartan (COZAAR) 50 mg tablet Take 50 mg by mouth once daily. montelukast (SINGULAIR) 10 mg tablet Take 10 mg by mouth once daily. loratadine (CLARITIN) 10 mg tablet Take 10 mg by mouth once daily. SIMVASTATIN (ZOCOR ORAL) Take by mouth. NAPROXEN SODIUM (ALEVE ORAL) Take by mouth. OMEPRAZOLE (PRILOSEC ORAL) Take by mouth. FLUoxetine (PROZAC) 20 mg capsule Take 1 capsule by mouth twice daily. [place]-3 Fatty Acids-Vitamin E 1,000 mg cap Take 1 capsule by mouth. FERROUS SULFATE (IRON ORAL) Take by mouth once daily. Multivitamin ORAL capsule Take 1 capsule by mouth once daily. CALCIUM CARBONATE/VITAMIN D3 (CALCIUM 500 + D ORAL) Take by mouth once daily. celecoxib (CELEBREX) 200 mg capsule Take 200 mg by mouth twice daily. (Patient not taking: Reported on 08/19/2022) rosuvastatin (CRESTOR) 20 mg tablet Take 20 mg by mouth once daily. (Patient not taking: Reported on 08/19/2022) ALLERGIES: ALLERGIES Allergen Reactions Aspirin GI Upset Promethazine Intolerance, Other: See Comments VITALS: BP 124/72 Pulse 85 Temp 36.3 C (97.3 F) (Tympanic) Resp 18 Wt 93.9 kg (207 lb) SpO2 97% PE: Pleasant, in no acute distress. <1cm erythematous and slightly indurated annular lesion with 1mm central stellate dark rogers on the mid right medial forearm. Under magnification there is stellate eschar or stain in the center following the minute fissures between pores and central puncture. No palpable fluctuance or foreign body. No subjective sensation of foreign body either. ASSESSMENT/PLAN: 1. Acute erythematous eruption of skin - ICD9: 695.89, ICD10: L53.9 Insect bite vs plant puncture. No exam findings of foreign body. Conservative treatment with antibiotic ointment and monitoring. Fernando Vizcaino MD documented in this encounter [facility] 06-29-2022 Note HNO ID: [id number] Author: RT Hilda(R) Service: ? Author Type: Technologist Type: Progress Notes Filed: 06/29/2022 12:03 PM Note Text: Radiology Service Progress Note PATIENT NAME: Kehinde Pitt DATE OF SERVICE: June 29, 2022 TIME: 12:02 PM PATIENT IDENTITY VERIFICATION COMPLETED USING TWO (2) IDENTIFIERS: Name and Date of confirmed by patient verbally. FALL SCREENING: Has the patient had 2 falls in the last year or 1 fall with injury or currently using an Ambulatory Assistive Device (Walker, Cane, Wheelchair, Crutches, etc.)? Yes, Patient High Risk for Falls What interventions were put in place to prevent falls during this visit? Increased Observations by Caregivers PATIENT GENDER DATA: Female. status: : No status: NO. PATIENT RELEVANT IMPLANT DATA REVIEWED: Not Applicable RADIOLOGY DEPARTMENT: General X-ray: Exam(s) Completed: Spine X-Ray(s): Lumbar AP / LAT / L5-S1 PERIPHERAL IV DATA: Not applicable SIGNED BY: RT Hilda(R) June 29, 2022 12:02 PM [facility] 10-25-2021 History of Present illness Narrative Images from the original note were not included. Subjective HPI Kehinde Pitt is a 70 year old female who presents with a sore on her back that has been present for 5 days. She has been using [place] on it. She believes it may be a boil but it has not gotten any better. She states the area is tender and last night started draining some yellow matter. She has not had a fever. Review of Systems Constitutional: Negative for chills and fever. Musculoskeletal: Negative for joint pain and myalgias. Skin: Negative for itching and rash. BP 118/86 Pulse 76 Temp 36.4 C (97.6 F) Resp 20 Wt 94.5 kg (208 lb 6.4 oz) SpO2 97% PAST MEDICAL HISTORY Diagnosis Date Depression GERD (gastroesophageal reflux disease) Hypercholesterolemia Hypertension PAST SURGICAL HISTORY Procedure Laterality Date LAPAROSCOPY SURG CHOLECYSTECTOMY 1991 Cholecystectomy, lap PAST SURGICAL HISTORY OF 2002 back surgery spurs removed REPAIR FIRST ABDOMINAL WALL HERNIA 05/20/11 mesh ALLERGIES Aspirin and Phenergan [Promethazine] MEDICATIONS hydroCHLOROthiazide (HYDRODIURIL, ESIDRIX) 12.5 mg tablet Take 12.5 mg by mouth once daily. losartan (COZAAR) 50 mg tablet Take 50 mg by mouth once daily. montelukast (SINGULAIR) 10 mg tablet Take 10 mg by mouth once daily. loratadine (CLARITIN) 10 mg tablet Take 10 mg by mouth once daily. SIMVASTATIN (ZOCOR ORAL) Take by mouth. NAPROXEN SODIUM (ALEVE ORAL) Take by mouth. OMEPRAZOLE (PRILOSEC ORAL) Take by mouth. FLUoxetine (PROZAC) 20 mg capsule Take 1 capsule by mouth twice daily. [place]-3 Fatty Acids-Vitamin E 1,000 mg cap Take 1 capsule by mouth. FERROUS SULFATE (IRON ORAL) Take by mouth once daily. Multivitamin ORAL capsule Take 1 capsule by mouth once daily. CALCIUM CARBONATE/VITAMIN D3 (CALCIUM 500 + D ORAL) Take by mouth once daily. doxycycline monohydrate 100 mg tablet Take 1 tablet by mouth twice daily for 10 days. mupirocin (BACTROBAN) 2 % ointment Apply 1 application to affected area three times daily for 10 days. celecoxib (CELEBREX) 200 mg ORAL capsule Take 200 mg by mouth twice daily. rosuvastatin (CRESTOR) 20 mg ORAL tablet Take 20 mg by mouth once daily. FAMILY HISTORY Problem Relation Age of Onset Cancer Father Cancer Paternal Grandfather Heart Mother Heart Father Diabetes Maternal Grandmother Social History Tobacco Use Smoking status: Never Smokeless tobacco: Never Substance Use Topics Alcohol use: No Drug use: No Objective Physical Exam Vitals and nursing note reviewed. Constitutional: Appearance: She is obese. Skin: General: Skin is warm and dry. Capillary Refill: Capillary refill takes less than 2 seconds. Findings: Erythema present. No rash. Neurological: Mental Status: She is alert. ASSESSMENT/PLAN: 1. Boil of trunk - ICD9: 680.2, ICD10: L02.229 - warm water with epsom salt soaks/compresses 2 to 3 times daily. - DOXYCYCLINE MONOHYDRATE 100 MG TABLET - MUPIROCIN 2 % TOPICAL OINTMENT - Follow-up with your PCP in 3-5 days if symptoms have not improved or sooner if symptoms worsen - Discussed red flags and need for immediate medical evaluation if any occur. - Discussed supportive care treatment with fluids, rest and analgesia. - Discussed expected course of illness Shama Del Valle APRN.CNP documented in this encounter [facility] 10-25-2021 Instructions Shama Del Valle APRN.CNP - 10/25/2021 6:37 PM EDT ASSESSMENT/PLAN: 1. Boil of trunk - ICD9: 680.2, ICD10: L02.229 - warm water with epsom salt soaks/compresses 2 to 3 times daily. - DOXYCYCLINE MONOHYDRATE 100 MG TABLET - MUPIROCIN 2 % TOPICAL OINTMENT - Follow-up with your PCP in 3-5 days if symptoms have not improved or sooner if symptoms worsen - Discussed red flags and need for immediate medical evaluation if any occur. - Discussed supportive care treatment with fluids, rest and analgesia. - Discussed expected course of illness Shama Del Valle APRN.CNP ABSCESS (BOIL): You have a skin abscess, or boil. Boils usually develop when Staph bacteria get into the small glands or hair follicles in the skin and form a pus pocket. After an abscess is properly drained, it will most often heal without any problems. You should not squeeze an abscess or boil to drain it; this can cause the infection to spread to other areas under the skin. Boils are contagious, so you should dispose of soiled bandages carefully and not share your towel or wash cloth with others. Soak the area in warm water with epsom salts for 20-30 minutes 3 times daily to help the healing. Oral antibiotics may be needed if the infection is severe or if it seems to be spreading. Please call your doctor if you have increased pain or swelling, chills or fever, red streaks going up the arm or leg, or continued pus drainage after 3-4 days. documented in this encounter [facility] Evaluation + Plan note No data available for this section [facility] Diagnosis Acute erythematous eruption of skin- Primary [facility] No data available for this section [facility] Progress note No data available for this section [facility] Summary Purpose Family History No Family History Records FoundNo Family History Records Found No data available for this section Advance Directives No Advanced Directives Records FoundNo Advanced Directives Records Found Additional Source Comments Source Comments (unrecognize d section and content) In the event this informatio n is protected by the Federal Confidentiality of Alcohol and Drug Abuse Patient Records regulations: The Federal rules restrict any use of the information to criminally investigate or prosecute any alcohol or drug abuse patient.[facility] the event this information is protected by the Federal Confidentiality of Alcohol and Drug Abuse Patient Records regulations: The Federal rules restrict any use of the information to criminally investigate or prosecute any alcohol or drug abuse patient.[facility] the event this information is protected by the Federal Confidentiality of Alcohol and Drug Abuse Patient Records regulations: The Federal rules restrict any use of the information to criminally investigate or prosecute any alcohol or drug abuse patient.[facility] the event this information is protected by the Federal Confidentiality of Alcohol and Drug Abuse Patient Records regulations: The Federal rules restrict any use of the information to criminally investigate or prosecute any alcohol or drug abuse patient.[facility] the event this information is protected by the Federal Confidentiality of Alcohol and Drug Abuse Patient Records regulations: The Federal rules restrict any use of the information to criminally investigate or prosecute any alcohol or drug abuse patient.[facility] Reason for Visit (unrecogniz ed section and content) Reason Comments Trauma Pt reported (RT) arm pain, small red raised area, x1 day. Reason Onset Date Comments Allied Health Visit 11/12/2022 Medication A dherence Outreach Reason Onset Date Comments Refill Request 02/03/2023 Reason Onset Date Comments Refill Request 02/07/2023 Care Teams (unrecognized sec tion and content) Care Team Personnel Name: PHYSICIAN, PATIENT UNSURE Member Role: Primary Care Physician Care Team Related Persons Name: TITUS PITT Financial Associate Relationship Specialty Start Date End Date Clinic, [facility] [place] [address] PCP - General 08/19/22 Financial Associate Relationship Specialty Start Date End Date [facility] [place] [address] PCP - General 08/19/22 INFORMATION SOURCE (unrecogn ized section and content) DATE CREATED AUTHOR AUTHOR'S ORGANIZ ATION 03/04/2023 [facility] ([place]) FOR RECORDS PERTAINING TO PATIENTS WHO ARE OR HAVE BEEN ENROLLED IN A CHEMICAL DEPENDENCY/SUBSTANCEABUSE PROGRAM, SOME INFORMATION MAY BE OMITTED. This clinical summary was aggregated from multiple sources. Caution should be exercised in using it in the provision of clinical care. This summary normalizes information from multiple sources, and as a consequence, information in this document may materially change the coding, format and clinical context of patient data. In addition, data may be omitted in some cases. CLINICAL DECISIONS SHOULD BE BASED ON THE PRIMARY CLINICAL RECORDS. [facility]. provides no warranty or guarantee of the accuracy or completeness of information in this document.
[2023-05-05 12:09] LABS: Vitamin D 1,25-Dihydroxy 45.6 pg/mL (24.8-81.5)
== END | disposition home or self-care (01) ==
LOC: LAB 09:13
PROVIDERS: Referring Provider Nurse Practitioner Family; Visit Provider Nurse Practitioner Family
DX: I10 Essential (primary) hypertension (principal); E78.5 Hyperlipidemia, unspecified; E55.9 Vitamin D deficiency, unspecified; G25.81 Restless legs syndrome; R73.03 Prediabetes
CPT/HCPCS: 36415; 80053; 80061; 82652; 83036; 83540; 83550; 84443; 85025